=== PATIENT | male | born 1980 | race Caucasian/White ===

== ENCOUNTER 2017-04-16 17:13 | Emergency (ER) | payer OTHER ==
[~2017-04-16] VITALS: Wt 81.6 kg
[2017-04-16] MEDS ORDERED: HYDROCODONE BIT1 T11 PO (18:14)
[2017-04-16] MEDS ORDERED: NAPROSYN500 MG PO (18:14)
== END 2017-04-16 19:38 | disposition home or self-care (01) ==
LOC: ED 17:13
DX: S43.014A Anterior dislocation of right humerus, initial encounter (principal); R03.0 Elevated blood-pressure reading, without diagnosis of hypertension; X50.9XXA Other and unspecified overexertion or strenuous movements or postures, initial encounter; Y93.89 Activity, other specified; Y92.9 Unspecified place or not applicable; Y99.9 Unspecified external cause status